=== PATIENT | female | born 1955 | race Caucasian/White ===

== ENCOUNTER 2024-01-21 17:28 | Inpatient (IN) | payer OTHER ==
[~2024-01-21] VITALS: Ht 154.9 cm; Wt 47.6 kg
[2024-01-21 17:28] VITALS: BP_SYST 121; PULSE 100; RESP 20; TEMP 98.2; O2SAT 94
[2024-01-21] MEDS: NACL 0.9% 1,000 ML IV ONE (17:45)
[2024-01-21 18:59] LABS: BASOPHILS % (AUTO) 0.1 % (0.0-2.0); EOSINOPHILS % (AUTO) 0.1 % (0.0-4.0); HEMATOCRIT 40.9 % (36-48); HEMOGLOBIN 14.4 g/dL (12.0-16.0); LYMPHOCYTES # (AUTO) 0.5 K/uL (1.0-5.5); LYMPHOCYTES % (AUTO) 3.7 % (20.5-51.5); MEAN CORPUSCULAR HEMOGLOBIN 34 pg (27-31); MEAN CORPUSCULAR HGB CONC 35 % (32-36); MEAN CORPUSCULAR VOLUME 97 fL (79.0-98.0); MONOCYTES # (AUTO) 0.5 K/uL (0.0-1.0); MONOCYTES % (AUTO) 3.3 % (1.7-9.3); NEUTROPHILS # (AUTO) 13.5 K/uL (1.8-7.7); NEUTROPHILS % (AUTO) 92.8 % (40.0-70.0); PLATELET COUNT (AUTO) 286 K/uL (130-430); RED BLOOD CELL COUNT(AUTO) 4.21 MIL/uL (4.2-6.2); RED CELL DISTRIBUTION WIDTH 13.6 % (9.0-15.0); WHITE BLOOD COUNT (AUTO) 14.6 K/uL (4.8-10.8)
[2024-01-21 19:12] LABS: BILIRUBIN,URINE NEGATIVE (NEGATIVE); BLOOD, URINE NEGATIVE (NEGATIVE); CLARITY/URINE CLEAR (CLEAR); COLOR,URINE YELLOW (YELLOW); GLUCOSE,URINE NEGATIVE (NEGATIVE); KETONES,URINE 2+ (NEGATIVE); LEUKOCYTE ESTERASE ,URINE NEGATIVE (NEGATIVE); NITRITE, URINE NEGATIVE (NEGATIVE); PROTEIN URINE NEGATIVE (NEGATIVE); UROBILINOGEN,URINE 0.2 (0.2-1.0)
[2024-01-21 19:56] LABS: INFLUENZA TYPE A Negative (NEGATIVE); INFLUENZA TYPE B NEGATIVE (NEGATIVE)
[2024-01-21 20:11] LABS: ANION GAP 13 (5-15); CARBON DIOXIDE 20 mmol/L (23-29); CREATININE 0.39 mg/dL (0.55-1.30); GFR AFRICAN AMERICAN 211 mL/min (>90); GFR NON AFRICAN-AMERICAN 175 mL/min (>90); GLUCOSE 93 mg/dL (74-106); UREA NITROGEN, BLOOD 11 mg/dL (8-21)
[2024-01-21 20:12] LABS: ALCOHOL, BLOOD < 3 mg/dL (<10)
[2024-01-21 20:14] LABS: CHLORIDE 77 mmol/L (98-107); POTASSIUM 2.8 mmol/L (3.5-5.1); SODIUM SERUM 110 mmol/L (136-145)
[2024-01-21] MEDS ORDERED: MAGNESIUM OXIDE 400 MG TABLET PO ONE (20:45)
[2024-01-21] MEDS: POTASSIUM CHLORIDE 20 MEQ TABLET.ER PO ONE (20:53)
[2024-01-21] MEDS ORDERED: POTASSIUM CHLORIDE 40 MEQ in NS 250 ML IV ONE (21:30)
[2024-01-21] MEDS: MAGNESIUM SULFATE 50 ML IV ONE (21:47)
[2024-01-21] MEDS: KCL 40 mEq in 100 mL (PREMIX) 0 ML IV ONE (22:23)
[2024-01-21 22:30] LABS: CHOLESTEROL 167 mg/dL (<200); HDL CHOLESTEROL 128 mg/dL (>55); TRIGLYCERIDES 48 mg/dL (30-150)
[2024-01-21] MEDS: KCL 20 mEq in 100 mL (PREMIX) 100 ML IV NR (22:43)
[2024-01-22] MEDS: NACL 0.9% 1,000 ML IV SCH (00:01)
[2024-01-22 01:21] VITALS: BP_SYST 111; PULSE 84; RESP 18; TEMP 97; O2SAT 98
[2024-01-22 07:08] LABS: BASOPHILS % (AUTO) 0.3 % (0.0-2.0); EOSINOPHILS % (AUTO) 0.1 % (0.0-4.0); HEMATOCRIT 34.6 % (36-48); LYMPHOCYTES # (AUTO) 0.9 K/uL (1.0-5.5); LYMPHOCYTES % (AUTO) 6.4 % (20.5-51.5); MEAN CORPUSCULAR HEMOGLOBIN 34 pg (27-31); MEAN CORPUSCULAR HGB CONC 35 % (32-36); MEAN CORPUSCULAR VOLUME 99 fL (79.0-98.0); MONOCYTES # (AUTO) 0.6 K/uL (0.0-1.0); MONOCYTES % (AUTO) 4.3 % (1.7-9.3); NEUTROPHILS % (AUTO) 88.9 % (40.0-70.0); PLATELET COUNT (AUTO) 257 K/uL (130-430); RED CELL DISTRIBUTION WIDTH 13.3 % (9.0-15.0); WHITE BLOOD COUNT (AUTO) 13.4 K/uL (4.8-10.8)
[2024-01-22 07:13] LABS: ALBUMIN 3.2 g/dL (3.4-4.8); CALCIUM 7.8 mg/dL (8.4-11.0); CREATININE 0.45 mg/dL (0.55-1.30); POTASSIUM 3.3 mmol/L (3.5-5.1); TOTAL BILIRUBIN 0.9 mg/dL (0.0-1.0); TOTAL PROTEIN, SERUM 6.2 g/dL (6.4-8.3)
[2024-01-22 08:00] VITALS: BP_SYST 98; PULSE 85; RESP 17; TEMP 97.3; O2SAT 97
[2024-01-22] MEDS ORDERED: CALC-823 PO (08:51)
[2024-01-22] MEDS ORDERED: BENA10TA73 PO (08:51)
[2024-01-22] MEDS ORDERED: TRAM50TA2 PO (08:51)
[2024-01-22] MEDS ORDERED: traMADol HCL HCL 50 MG TABLET (ULTRAM) PO PRN (10:45)
[2024-01-22 10:54] VITALS: O2SAT 99
[2024-01-22] MEDS ORDERED: ACETYLCYSTEINE 20% 6000 MG/30 ML VIAL (ORAL) PO PRN (17:30)
[2024-01-22] MEDS ORDERED: ACETYLCYSTEINE 20% 4 ML VIAL (RT) INH PRN (17:45)
[2024-01-22 20:13] VITALS: BP_SYST 100; PULSE 87; RESP 17; TEMP 97.8; O2SAT 97
[2024-01-22] MEDS: guaiFENesin ER 600 MG TAB PO SCH (21:21)
[2024-01-23] VITALS (7 sets, daily range): BP systolic 110–137; PULSE 82–104; RESP 15–20; TEMP 97.3–98.2; O2SAT 93–100
[2024-01-23 07:20] LABS: BASOPHILS % (AUTO) 0.1 % (0.0-2.0); EOSINOPHILS # (AUTO) 0.1 K/uL (0.0-0.4); EOSINOPHILS % (AUTO) 0.4 % (0.0-4.0); HEMATOCRIT 35.4 % (36-48); HEMOGLOBIN 12.2 g/dL (12.0-16.0); LYMPHOCYTES # (AUTO) 1.1 K/uL (1.0-5.5); MEAN CORPUSCULAR HEMOGLOBIN 35 pg (27-31); MEAN CORPUSCULAR HGB CONC 35 % (32-36); MEAN CORPUSCULAR VOLUME 100 fL (79.0-98.0); MONOCYTES # (AUTO) 0.8 K/uL (0.0-1.0); MONOCYTES % (AUTO) 6.6 % (1.7-9.3); NEUTROPHILS # (AUTO) 9.9 K/uL (1.8-7.7); NEUTROPHILS % (AUTO) 83.9 % (40.0-70.0); PLATELET COUNT (AUTO) 257 K/uL (130-430); RED BLOOD CELL COUNT(AUTO) 3.54 MIL/uL (4.2-6.2); RED CELL DISTRIBUTION WIDTH 13.3 % (9.0-15.0); WHITE BLOOD COUNT (AUTO) 11.9 K/uL (4.8-10.8)
[2024-01-23 07:43] LABS: CALCIUM 7.9 mg/dL (8.4-11.0); CREATININE 0.34 mg/dL (0.55-1.30); PHOSPHORUS 2.3 mg/dL (2.7-4.5); THYROID STIMULATING HORMONE 1.16 uIu/mL (0.34-4.82); TOTAL BILIRUBIN 0.8 mg/dL (0.0-1.0); TOTAL PROTEIN, SERUM 6.2 g/dL (6.4-8.3)
[2024-01-23 08:11] LABS: POTASSIUM 2.4 mmol/L (3.5-5.1)
[2024-01-23] MEDS ORDERED: BENAZEPRIL HCL Non-Formulary 10 MG TABLET PO SCH (09:00)
[2024-01-23] MEDS: CALCIUM CARBONATE/VITAMIN D3 1 TAB TABLET PO SCH (09:56)
[2024-01-23] MEDS: LISINOPRIL 10 MG TABLET (PRINIVIL) PO SCH (09:56)
[2024-01-23] MEDS: NICOTINE 14 MG/24 HR PATCH.TD24 TD SCH (09:58)
[2024-01-23] MEDS: POTASSIUM CHLORIDE 20 MEQ/PKT PACKET PO SCH (10:35)
[2024-01-23] MEDS: POTASSIUM CHLORIDE 40 MEQ, LIDOCAINE JECT 2% PF 100 MG 50 MG in NS 250 ML IV ONE (11:26)
[2024-01-23 11:34] LABS: URINE SODIUM, RANDOM 29 mmol/L (40-220)
[2024-01-23] MEDS: NA PHOS 30 MM in NS 250 ML IV ONE (16:13)
[2024-01-24] VITALS (8 sets, daily range): BP systolic 97–146; PULSE 88–100; RESP 16–20; TEMP 97.2–99.1; O2SAT 93–98
[2024-01-24 05:27] LABS: BASOPHILS % (AUTO) 0.1 % (0.0-2.0); EOSINOPHILS # (AUTO) 0.1 K/uL (0.0-0.4); EOSINOPHILS % (AUTO) 0.8 % (0.0-4.0); HEMATOCRIT 34.5 % (36-48); LYMPHOCYTES # (AUTO) 1.2 K/uL (1.0-5.5); LYMPHOCYTES % (AUTO) 11.2 % (20.5-51.5); MEAN CORPUSCULAR HEMOGLOBIN 35 pg (27-31); MEAN CORPUSCULAR HGB CONC 35 % (32-36); MEAN CORPUSCULAR VOLUME 100 fL (79.0-98.0); MONOCYTES # (AUTO) 0.9 K/uL (0.0-1.0); NEUTROPHILS # (AUTO) 8.2 K/uL (1.8-7.7); NEUTROPHILS % (AUTO) 78.9 % (40.0-70.0); PLATELET COUNT (AUTO) 272 K/uL (130-430); RED BLOOD CELL COUNT(AUTO) 3.46 MIL/uL (4.2-6.2); RED CELL DISTRIBUTION WIDTH 13.2 % (9.0-15.0); WHITE BLOOD COUNT (AUTO) 10.4 K/uL (4.8-10.8)
[2024-01-24 05:45] LABS: CALCIUM 8.1 mg/dL (8.4-11.0); CREATININE 0.35 mg/dL (0.55-1.30); PHOSPHORUS 3.6 mg/dL (2.7-4.5)
[2024-01-24 07:16] LABS: POTASSIUM 2.7 mmol/L (3.5-5.1)
[2024-01-24] MEDS: POTASSIUM CHLORIDE 40 MEQ, LIDOCAINE JECT 2% PF 100 MG 50 MG in NS 250 ML IV ONE (09:09)
[2024-01-24 12:07] LABS: CREATININE, URINE 33.2 mg/dL (Not Estab.); MICROALBUMIN URINE RANDOM 22.7 ug/mL (Not Estab.)
[2024-01-24] MEDS: levalbuterol HCL 0.63 MG/3 ML VIAL.NEB INH SCH (13:45)
[2024-01-24] MEDS: POTASSIUM CHLORIDE 20 MEQ/PKT PACKET PO SCH (22:59)
[2024-01-25] VITALS (8 sets, daily range): BP systolic 98–112; PULSE 77–92; RESP 18–19; TEMP 97–98.9; O2SAT 95–97
[2024-01-25 06:47] LABS: CALCIUM 8.1 mg/dL (8.4-11.0); CREATININE 0.37 mg/dL (0.55-1.30); POTASSIUM 3.9 mmol/L (3.5-5.1)
== END 2024-01-25 22:25 | DRG 551 ==
LOC: SED 17:28 → STU 21:38
PROVIDERS: ADMIT Internal Medicine; ATTEND Internal Medicine
DX: M47.816 Spondylosis without myelopathy or radiculopathy, lumbar region (principal); E43 Unspecified severe protein-calorie malnutrition; E87.1 Hypo-osmolality and hyponatremia; M48.56XA Collapsed vertebra, not elsewhere classified, lumbar region, initial encounter for fracture; Z68.1 Body mass index [BMI] 19.9 or less, adult; Z20.822 Contact with and (suspected) exposure to COVID-19; E86.0 Dehydration; E87.6 Hypokalemia; M47.812 Spondylosis without myelopathy or radiculopathy, cervical region; K44.9 Diaphragmatic hernia without obstruction or gangrene; Z79.899 Other long term (current) drug therapy; E88.A Wasting disease (syndrome) due to underlying condition
CPT/HCPCS: 36415; 70450-TC; 71045; 72125-TC; 72131; 80048; 80053; 80061; 81001; 81003; 82043; 82533; 82570; 83735; 83880; 83935; 84100; 84302; 84443; 84484; 84550; 85025; 87086; 93005; 94640; 94760; 97110-GP; 97116-GP; 97530-GP; 99285; G0378; G0482; J3475; J3480; J7050; J7614